=== PATIENT | male | born 2000 | race African-American/Black ===

== ENCOUNTER 2025-03-09 10:16 | Inpatient (IN) | payer MEDICAID ==
[~2025-03-09] VITALS: Ht 165.1 cm; Wt 60.8 kg
[2025-03-09] MEDS: SODIUM CHLORIDE 0.9% (SEPSIS BOLUS) IV ONE (11:07)
[2025-03-09] MEDS: CEFTRIAXONE 1GM/50ML 50 ML IV NR (11:15)
[2025-03-09] MEDS: FUROSEMIDE 40MG/4ML VIAL IVP NR (11:15)
[2025-03-09 11:22] LABS: BASOPHILS % 0.8 % (0.0-2.0); EOSINOPHILS % 0.7 % (0.0-5.0); HEMATOCRIT. 25.2 % (42.0-52.0); HEMOGLOBIN. 7.4 g/dL (14.0-18.0); LYMPHOCYTES % 9.0 % (20.0-50.0); MEAN PLATELET VOLUME 7.4 fl (7.4-10.4); MONOCYTES % 5.3 % (2.0-8.0); NEUTROPHILS % 84.2 % (40.0-76.0); PLATELET 499 x1000/uL (130-400); RED BLOOD CELL COUNT 3.00 mill/uL (4.7-6.1); RED CELL DISTRIBUTION WIDTH 17.3 % (11.6-14.6)
[2025-03-09 11:33] LABS: INR 1.0
[2025-03-09 11:36] LABS: CREATININE 0.9 mg/dL (0.6-1.3); UREA NITROGEN BLOOD 8 mg/dL (9-23)
[2025-03-09 11:37] LABS: ASPARTATE AMINOTRANSFERASE 36 IU/L (<34)
[2025-03-09 11:38] LABS: BILIRUBIN DIRECT 0.1 mg/dL (<=3.0); BILIRUBIN TOTAL 0.4 mg/dL (0.1-1.0); PROTEIN TOTAL 7.2 g/dL (6.0-8.3)
[2025-03-09] MEDS: PIPERACILLIN/TAZO 3.375G/50ML 50 ML IV ONE (11:42)
[2025-03-09] MEDS: VANCOMYCIN 1G PREMIX 200 ML IV ONE (12:00)
[2025-03-09 12:14] LABS: CLARITY URINE CLEAR (CLEAR); COLOR URINE YELLOW (YELLOW); GLUCOSE URINE TRACE (NEGATIVE); KETONES URINE NEGATIVE (NEGATIVE); LEUKOCYTE ESTERASE URINE NEGATIVE (NEGATIVE); NITRITE URINE NEGATIVE (NEGATIVE); OCCULT BLOOD URINE NEGATIVE (NEGATIVE); PH URINE 5.5 (4.5-8.0); PROTEIN URINE NEGATIVE (NEGATIVE); SPECIFIC GRAVITY URINE 1.009 (1.005-1.030); UROBILINOGEN URINE 0.2 E.U./dL (0.2-1.0)
[2025-03-09 12:48] LABS: BG BASE EXCESS 5.0 mmol/L (-2.0-3.0); BG CARBOXYHEMOGLOBIN 1.9 % (0.5-1.5); BG DEOXYHEMOGLOBIN 0.3 % (0.0-5.0); BG FLOW(L/min) 15.00 L/min; BG FRACTION INSPIRED OXYGEN 100; BG HCO3 ACT 32.8 mmol/L (21.0-28.0); BG METHEMOGLOBIN 0.4 % (0.5-1.5); BG OXYGEN SATURATION 99.7 % (94.0-98.0); BG OXYHEMOGLOBIN 97.4 % (94.0-98.0); BG PCO2 72.5 mmHg (35.0-48.0); BG PH 7.273 (7.350-7.450); BG PO2 306.2 mmHg (83.0-108.0); BG SAMPLE SITE RIGHT RADIAL; BG TOTAL HEMOGLOBIN 7.5 g/dL (13.5-17.5); BG VENT MODE MASK - NRB
[2025-03-09 13:33] LABS: FINE GRANULAR CASTS URINE 0-5 /lpf; SQUAMOUS EPITHELIAL CELL URINE RARE /lpf (RARE/1+)
[2025-03-09 13:34] LABS: BACTERIA URINE NONE SEEN; RBC URINE 0-2 /hpf (0-2); WBC URINE 0-2 /hpf (0-2)
[2025-03-09 13:55] LABS: TROPONIN I HIGH SENSITIVITY 19 ng/L (3.0-53)
[2025-03-09] MEDS ORDERED: CLONIDINE 0.1MG TABLET PO PRN (14:15)
[2025-03-09] MEDS ORDERED: MORPHINE SULFATE 2 MG/ML INJ (NOT FOR IM USE) IV PRN (14:15)
[2025-03-09] MEDS ORDERED: ACETAMINOPHEN 325MG TABLET PO PRN (14:15)
[2025-03-09] MEDS ORDERED: MAGNESIUM/ALUMINUM HYDROXIDE/SIMETHICONE 30ML UDC PO PRN (14:15)
[2025-03-09] MEDS ORDERED: NALOXONE HCL 0.4MG/ML VIAL IV PRN (14:15)
[2025-03-09] MEDS ORDERED: HYDROCODONE/ACETAMINOPHEN 5/325MG TABLET PO PRN (14:15)
[2025-03-09] MEDS: SODIUM CHLORIDE 0.9% 1,000 ML IV SCH (14:45)
[2025-03-09] MEDS: PANTOPRAZOLE SODIUM 40 MG/VIAL IV SCH (15:10)
[2025-03-09 16:24] VITALS: BP 134/56; PULSE 111; RESP 24; TEMP 36.696
[2025-03-09 16:41] VITALS: BP 134/56; PULSE 111; RESP 24; TEMP 36.7; O2SAT 98
[2025-03-09] MEDS: ENOXAPARIN 40MG/0.4ML SYR SUBCUT SCH (17:00)
[2025-03-09 17:45] LABS: BG BASE EXCESS 12.9 mmol/L (-2.0-3.0); BG CARBOXYHEMOGLOBIN 1.1 % (0.5-1.5); BG DEOXYHEMOGLOBIN 3.3 % (0.0-5.0); BG FLOW(L/min) 5.00 L/min; BG FRACTION INSPIRED OXYGEN 40; BG HCO3 ACT 40.2 mmol/L (21.0-28.0); BG METHEMOGLOBIN 0.3 % (0.5-1.5); BG OXYGEN SATURATION 96.7 % (94.0-98.0); BG OXYHEMOGLOBIN 95.3 % (94.0-98.0); BG PCO2 73.6 mmHg (35.0-48.0); BG PH 7.355 (7.350-7.450); BG PO2 90.4 mmHg (83.0-108.0); BG SAMPLE SITE RIGHT RADIAL; BG TOTAL HEMOGLOBIN 7.8 g/dL (13.5-17.5); BG VENT MODE NASAL CANNULA
[2025-03-09] MEDS ORDERED: VANCOMYCIN 1GM/200ML PMX (BAXTER) IV SCH (18:00)
[2025-03-09 18:58] LABS: CLARITY URINE CLEAR (CLEAR); COLOR URINE YELLOW (YELLOW); GLUCOSE URINE NEGATIVE (NEGATIVE); KETONES URINE NEGATIVE (NEGATIVE); LEUKOCYTE ESTERASE URINE NEGATIVE (NEGATIVE); NITRITE URINE NEGATIVE (NEGATIVE); OCCULT BLOOD URINE NEGATIVE (NEGATIVE); PH URINE 5.0 (4.5-8.0); PROTEIN URINE NEGATIVE (NEGATIVE); SPECIFIC GRAVITY URINE 1.009 (1.005-1.030); UROBILINOGEN URINE 0.2 E.U./dL (0.2-1.0)
[2025-03-09 19:09] LABS: *AMPHETAMINES SCREEN URINE NEGATIVE (NEGATIVE); *BARBITURATES SCREEN URINE NEGATIVE (NEGATIVE); *BENZODIAZEPINES SCREEN URINE NEGATIVE (NEGATIVE)
[2025-03-09 19:10] LABS: *COCAINE SCREEN URINE NEGATIVE (NEGATIVE); CANNABINOID URINE SCREEN NEGATIVE (NEGATIVE); METHADONE URINE SCREEN NEGATIVE (NEGATIVE); OPIATES URINE SCREEN NEGATIVE (NEGATIVE); PHENCYCLIDINE URINE SCREEN NEGATIVE (NEGATIVE)
[2025-03-09 19:20] LABS: ECSTASY MDMA SCREEN URINE NEGATIVE (NEGATIVE)
[2025-03-09 20:00] VITALS: BP 111/53; PULSE 113; RESP 29; TEMP 37.5; O2SAT 98
[2025-03-09] MEDS: VANCOMYCIN 1GM/200ML PMX (BAXTER) IV SCH (20:55)
[2025-03-09] MEDS ORDERED: ZOLPIDEM TARTRATE 5MG TABLET PO PRN (21:00)
[2025-03-09] MEDS: PIPERACILLIN/TAZO 3.375G/50ML 50 ML IV SCH (22:37)
[2025-03-09 23:44] LABS: TROPONIN I HIGH SENSITIVITY 8 ng/L (3.0-53)
[2025-03-10] VITALS (18 sets, daily range): BP systolic 104–143; BP diastolic 52–71; PULSE 94–122; RESP 22–30; TEMP 36.50292–37.1; O2SAT 96–100
[2025-03-10 05:00] LABS: BG BASE EXCESS -7.8 mmol/L (-2.0-3.0); BG CARBOXYHEMOGLOBIN 1.4 % (0.5-1.5); BG DEOXYHEMOGLOBIN 0.3 % (0.0-5.0); BG FLOW(L/min) 15.00 L/min; BG FRACTION INSPIRED OXYGEN 100; BG HCO3 ACT 19.8 mmol/L (21.0-28.0); BG METHEMOGLOBIN 0.3 % (0.5-1.5); BG OXYGEN SATURATION 99.7 % (94.0-98.0); BG OXYHEMOGLOBIN 98.0 % (94.0-98.0); BG PCO2 58.1 mmHg (35.0-48.0); BG PH 7.151 (7.350-7.450); BG PO2 205.7 mmHg (83.0-108.0); BG SAMPLE SITE RIGHT RADIAL; BG TOTAL HEMOGLOBIN 4.0 g/dL (13.5-17.5); BG VENT MODE MASK - NRB
[2025-03-10] MEDS ORDERED: AZITHROMYCIN 500MG/250ML 250 ML IV SCH (06:00)
[2025-03-10] MEDS: SULFAMETHOXAZOLE/TRIMETHOPRIM 800/160MG TABLET PO SCH (06:09)
[2025-03-10] MEDS: AZITHROMYCIN 500MG/250ML 250 ML IV SCH (06:39)
[2025-03-10 08:10] LABS: CREATININE 0.8 mg/dL (0.6-1.3); TROPONIN I HIGH SENSITIVITY 4 ng/L (3.0-53); UREA NITROGEN BLOOD 8 mg/dL (9-23)
[2025-03-10 08:16] LABS: MEAN PLATELET VOLUME 7.1 fl (7.4-10.4); PLATELET 320 x1000/uL (130-400); RED BLOOD CELL COUNT 1.85 mill/uL (4.7-6.1); RED CELL DISTRIBUTION WIDTH 17.8 % (11.6-14.6)
[2025-03-10 08:28] LABS: HEMATOCRIT. 16.7 % (42.0-52.0); HEMOGLOBIN. 4.6 g/dL (14.0-18.0)
[2025-03-10 10:17] LABS: CREATININE 0.9 mg/dL (0.6-1.3); UREA NITROGEN BLOOD 8 mg/dL (9-23)
[2025-03-10] MEDS ORDERED: LIDOCAINE HCL 1% 10 MG/ML 10ML VIAL ONE (10:34)
[2025-03-10] MEDS ORDERED: IPRATROPIUM/ALBUTEROL 0.5-3(2.5)MG/3ML NEB HHN PRN (15:00)
[2025-03-10] MEDS ORDERED: IOHEXOL-350 100 ML BOTTLE ONE (15:03)
[2025-03-10 15:57] LABS: BG BASE EXCESS 10.8 mmol/L (-2.0-3.0); BG CARBOXYHEMOGLOBIN 1.7 % (0.5-1.5); BG DEOXYHEMOGLOBIN 2.6 % (0.0-5.0); BG FLOW(L/min) 7.00 L/min; BG FRACTION INSPIRED OXYGEN 50; BG HCO3 ACT 37.8 mmol/L (21.0-28.0); BG METHEMOGLOBIN 0.3 % (0.5-1.5); BG OXYGEN SATURATION 97.3 % (94.0-98.0); BG OXYHEMOGLOBIN 95.4 % (94.0-98.0); BG PCO2 70.0 mmHg (35.0-48.0); BG PH 7.350 (7.350-7.450); BG PO2 99.9 mmHg (83.0-108.0); BG SAMPLE SITE RIGHT RADIAL; BG TOTAL HEMOGLOBIN 7.3 g/dL (13.5-17.5); BG VENT MODE MASK - SIMPLE
[2025-03-10] MEDS: METHYLPREDNISOLONE SOD SUCC 40MG/ML (ACT-O-VIAL) IV SCH (16:22)
[2025-03-10] MEDS: IPRATROPIUM/ALBUTEROL 0.5-3(2.5)MG/3ML NEB HHN SCH (16:32)
[2025-03-10] MEDS: MONTELUKAST SODIUM 10MG TABLET PO SCH (17:15)
[2025-03-10] MEDS: VANCOMYCIN 1GM PMX (XELLIA) 200 ML IV SCH (17:58)
[2025-03-10 20:14] LABS: BAND% 1.0 % (1.0-6.0); LYMPHOCYTES % MANUAL 37.0 % (20.0-50.0); MONOCYTES % MANUAL 11.0 % (2.0-8.0); NEUTROPHILS % MANUAL 51.0 % (45.0-75.0); PLATELET ESTIMATE NORMAL
[2025-03-10] MEDS: FAMOTIDINE 20MG/2ML VIAL IV SCH (21:02)
[2025-03-11] VITALS (14 sets, daily range): BP systolic 99–127; BP diastolic 41–67; PULSE 84–109; RESP 17–26; TEMP 36.8–37.3; O2SAT 90–99
[2025-03-11 07:27] LABS: BASOPHILS % 0.6 % (0.0-2.0); EOSINOPHILS % 0.0 % (0.0-5.0); HEMATOCRIT. 25.3 % (42.0-52.0); HEMOGLOBIN. 7.9 g/dL (14.0-18.0); LYMPHOCYTES % 12.7 % (20.0-50.0); MEAN PLATELET VOLUME 7.2 fl (7.4-10.4); MONOCYTES % 3.0 % (2.0-8.0); NEUTROPHILS % 83.7 % (40.0-76.0); PLATELET 449 x1000/uL (130-400); RED BLOOD CELL COUNT 3.05 mill/uL (4.7-6.1); RED CELL DISTRIBUTION WIDTH 16.9 % (11.6-14.6)
[2025-03-11 07:56] LABS: CREATININE 0.8 mg/dL (0.6-1.3)
[2025-03-11 07:57] LABS: UREA NITROGEN BLOOD 8 mg/dL (9-23)
[2025-03-11 07:58] LABS: LACTATE DEHYDROGENASE 256 IU/L (120-246)
[2025-03-11] MEDS: AZITHROMYCIN 500MG/250ML 250 ML IV SCH (09:06)
[2025-03-11] MEDS: LORATADINE 10MG TABLET PO SCH (09:07)
[2025-03-11 13:12] LABS: ABSOLUTE BASOPHILS 0.0 x10E3/uL (0.0-0.2); ABSOLUTE EOSINOPHILS 0.1 x10E3/uL (0.0-0.4); ABSOLUTE LYMPHOCYTES 0.7 x10E3/uL (0.7-3.1); ABSOLUTE MONOCYTES 0.4 x10E3/uL (0.1-0.9); ABSOLUTE NEUTROPHILS 1.2 x10E3/uL (1.4-7.0); BASOPHILS 0 % (Not Estab.); EOSINOPHILS 3 % (Not Estab.); IMMATURE GRANULOCYTES 3 % (Not Estab.); IMMATURE GRANULOCYTES ABSOLUTE 0.1 x10E3/uL (0.0-0.1); LYMPHOCYTES 28 % (Not Estab.); MEAN CORPUSCULAR HGB CONC. 24.9 g/dL (31.5-35.7); MONOCYTES 15 % (Not Estab.); NEUTROPHILS 51 % (Not Estab.); PLATELETS 313 x10E3/uL (150-450); RBC 1.87 x10E6/uL (4.14-5.80); RED CELL DISTRIBUTION WIDTH 14.4 % (11.6-15.4); WBC 2.3 x10E3/uL (3.4-10.8)
[2025-03-11 15:07] LABS: % CD 3 POS. LYMPHOCYTES 76.0 % (57.5-86.2); % CD 4 POS. LYMPHOCYTES 5.0 % (30.8-58.5); % CD 8 POS. LYMPH 68.4 % (12.0-35.5); ABSOLUTE CD 3 532 /uL (622-2402); ABSOLUTE CD 4 HELPER 35 /uL (359-1519); ABSOLUTE CD 8 SUPPRESSOR 479 /uL (109-897)
[2025-03-11] MEDS: KCL 20MEQ/100ML PREMIX 100 ML IV SCH (17:51)
[2025-03-11] MEDS: MAGNESIUM 2 G PREMIX 50 ML IV SCH (17:51)
[2025-03-11 18:53] LABS: BG BASE EXCESS 7.7 mmol/L (-2.0-3.0); BG CARBOXYHEMOGLOBIN 1.8 % (0.5-1.5); BG DEOXYHEMOGLOBIN 0.1 % (0.0-5.0); BG FRACTION INSPIRED OXYGEN 21; BG HCO3 ACT 34.7 mmol/L (21.0-28.0); BG METHEMOGLOBIN 0.4 % (0.5-1.5); BG OXYGEN SATURATION 99.9 % (94.0-98.0); BG OXYHEMOGLOBIN 97.7 % (94.0-98.0); BG PCO2 66.8 mmHg (35.0-48.0); BG PH 7.334 (7.350-7.450); BG PO2 166.1 mmHg (83.0-108.0); BG TOTAL HEMOGLOBIN 8.2 g/dL (13.5-17.5); BG VENT MODE ROOM AIR
[2025-03-12] VITALS (17 sets, daily range): BP systolic 91–126; BP diastolic 44–80; PULSE 87–111; RESP 17–30; TEMP 36.6–37.1; O2SAT 93–100
[2025-03-12 07:30] LABS: CREATININE 0.9 mg/dL (0.6-1.3); UREA NITROGEN BLOOD 8 mg/dL (9-23)
[2025-03-12 07:38] LABS: BASOPHILS % 0.5 % (0.0-2.0); EOSINOPHILS % 0.0 % (0.0-5.0); HEMATOCRIT. 22.6 % (42.0-52.0); HEMOGLOBIN. 7.1 g/dL (14.0-18.0); LYMPHOCYTES % 7.9 % (20.0-50.0); MEAN PLATELET VOLUME 7.0 fl (7.4-10.4); MONOCYTES % 11.6 % (2.0-8.0); NEUTROPHILS % 80.0 % (40.0-76.0); PLATELET 428 x1000/uL (130-400); RED BLOOD CELL COUNT 2.73 mill/uL (4.7-6.1); RED CELL DISTRIBUTION WIDTH 16.9 % (11.6-14.6)
[2025-03-12] MEDS: VANCOMYCIN 1GM PMX (XELLIA) 200 ML IV SCH (09:34)
[2025-03-12] MEDS: ONDANSETRON HCL 4MG/2ML INJ IV PRN (10:51)
[2025-03-12] MEDS: VANCOMYCIN 750MG PMX (XELLIA) 150 ML IV SCH (16:09)
[2025-03-13] VITALS (16 sets, daily range): BP systolic 104–127; BP diastolic 55–73; PULSE 83–113; RESP 14–26; TEMP 36.7–37.1; O2SAT 95–100
[2025-03-13] MEDS: METHYLPREDNISOLONE SOD SUCC 40MG/ML (ACT-O-VIAL) IV NR (19:22)
[2025-03-14] VITALS (13 sets, daily range): BP systolic 98–130; BP diastolic 46–72; PULSE 80–112; RESP 18–22; TEMP 36.6–36.9; O2SAT 93–99
[2025-03-14 05:43] LABS: CREATININE 0.7 mg/dL (0.6-1.3); UREA NITROGEN BLOOD 7 mg/dL (9-23)
[2025-03-14 07:26] LABS: BASOPHILS % 0.4 % (0.0-2.0); EOSINOPHILS % 0.0 % (0.0-5.0); HEMATOCRIT. 26.5 % (42.0-52.0); HEMOGLOBIN. 8.1 g/dL (14.0-18.0); LYMPHOCYTES % 10.4 % (20.0-50.0); MEAN PLATELET VOLUME 7.3 fl (7.4-10.4); MONOCYTES % 5.9 % (2.0-8.0); NEUTROPHILS % 83.3 % (40.0-76.0); PLATELET 493 x1000/uL (130-400); RED BLOOD CELL COUNT 3.18 mill/uL (4.7-6.1); RED CELL DISTRIBUTION WIDTH 17.5 % (11.6-14.6)
[2025-03-14] MEDS ORDERED: AZIT250T12 MT (09:32)
[2025-03-14] MEDS ORDERED: SULF1TAB44 PO (09:32)
== END 2025-03-14 20:15 | disposition home or self-care (01) | DRG 890 ==
LOC: ER 10:16 → EDBEDREQ 11:47 → EDBEDREQSVC 11:47 → EDBEDREQTM 11:47 → 7WST 13:32 → EDBEDREQTM 13:34 → EDBEDREQ 13:34 → EDBEDREQSVC 14:25 → ENRESERV 15:24 → 5EST 19:00
PROVIDERS: ADMIT Internal Medicine; ATTEND Internal Medicine
PROC: 5A09357 Assistance with Respiratory Ventilation, Less than 24 Consecutive Hours, Continuous Positive Airway Pressure (ICD-10-PCS; 2025-03-09)
PROC: 02HV33Z Insertion of Infusion Device into Superior Vena Cava, Percutaneous Approach (ICD-10-PCS; principal; 2025-03-10)
PROC: B548ZZA Ultrasonography of Superior Vena Cava, Guidance (ICD-10-PCS; 2025-03-10)
PROC: 30233N1 Transfusion of Nonautologous Red Blood Cells into Peripheral Vein, Percutaneous Approach (ICD-10-PCS; 2025-03-10)
DX: A41.9 Sepsis, unspecified organism (principal); B20 Human immunodeficiency virus [HIV] disease; G92.8 Other toxic encephalopathy; R65.20 Severe sepsis without septic shock; J96.21 Acute and chronic respiratory failure with hypoxia; E11.649 Type 2 diabetes mellitus with hypoglycemia without coma; J18.9 Pneumonia, unspecified organism; C34.90 Malignant neoplasm of unspecified part of unspecified bronchus or lung; J96.22 Acute and chronic respiratory failure with hypercapnia; D64.9 Anemia, unspecified; J45.909 Unspecified asthma, uncomplicated; Z99.81 Dependence on supplemental oxygen; Z79.899 Other long term (current) drug therapy; C44.90 Unspecified malignant neoplasm of skin, unspecified
CPT/HCPCS: 36415; 36573; 36600; 71045; 71275; 80048; 80076; 80202; 80305; 81003; 82375; 82805; 82962; 83605; 83615; 84145; 84443; 84484; 85014; 85018; 85025; 85044; 86359; 86360; 86850; 86880; 86900; 86920; 93005; 93970; 94070; 94640; 94660; 94664; 98960; 99291; A4606; C1725; J0456; J0696; J1308; J1650; J1938; J2003; J2405; J2470; J2543; J2919; J3373; J3475; J3480; J7030; P9016; Q9967